=== PATIENT | female | born 1960 | race Caucasian/White ===

== ENCOUNTER 2016-08-19 19:47 | Emergency (ER) | payer SELFPAY ==
[~2016-08-19] VITALS: Ht 160 cm; Wt 50.0 kg
[~2016-08-19 19:47] MED LIST: Z.0.NO CURRENT MEDS
[2016-08-19 19:59] VITALS: BP 204/128; PULSE 99; RESP 16; TEMP 98.2; O2SAT 97
--- NOTE | 2016-08-19 20:22 | PD ---
HPI Chief Complaint: Injury Time Seen by Provider: 20:06 Travel History International Travel<30 days: No Contact w/Intl Traveler<30days: No Traveled to known affect area: No History of Present Illness HPI 55-year-old female here for evaluation of left hand pain after an injury that occurred at around 3:30 this morning. The patient reports that she tripped over her dog, landing onto an outstretched hand, hyperextending her left third and fourth fingers. She denies any other injuries. She has been applying ice and keeping the hand elevated. Pain is moderate, constant, worse with palpation and movement. She denies left wrist, left elbow, left shoulder pain. No other injuries. She is right-handed. [facility] Past Medical History Hypertension: Yes (UNTREATED AT THIS TIME) ?: Not Menopausal: Yes Past Surgical History Section: Yes (THREE) Eye Surgery: Yes (FOR LAZY EYE) Joint Replacement: Yes (PARTIAL RIGHT KNEE REPLACEMENT) Tonsillectomy: Yes Social History Alcohol Use: Yes (OCCASSIONALLY) Tobacco Use: Yes (1 PPD X 20 YEARS) Substance Use: No Allergies-Medications (Allergen,Severity, Reaction): Coded Allergies: Demerol (Verified Allergy, Severe, Seizures, 08/19/16) Penicillin (Verified Allergy, Severe, Hives, 08/19/16) Phenergan (Verified Allergy, Severe, Seizures, 08/19/16) Reported Meds & Prescriptions Reported Meds & Active Scripts Active Reported No Current Meds (Miscellaneous Medication) Misc Review of Systems Except as stated in HPI: all other systems reviewed are Neg Physical Exam Narrative GENERAL: Well-developed, well-nourished, comfortable, no acute distress. SKIN: Focused skin assessment warm/dry. Ecchymosis to left medial/dorsal/ palmar hand. No skin breaks. HEAD: Atraumatic. Normocephalic. CARDIOVASCULAR: Bilateral distal radial pulses are brisk and equal. Normal capillary refill in entire left hand. MUSCULOSKELETAL: Moderate edema to left medial hand over the dorsal and palmar aspect, particularly over the left fourth and fifth metacarpals. There is also edema to the proximal left third fourth and fifth fingers with mild overlying ecchymosis. No skin breaks. Compartments in left hand are supple. Limited range of motion in left third fourth and fifth fingers secondary to edema and pain. Respiratory joints and extremities are without deformity, without tenderness, with normal range of motion. NEUROLOGICAL: Awake and alert. No obvious cranial nerve deficits. Motor grossly within normal limits. Normal speech. Normal sensation in entire left hand. PSYCHIATRIC: Appropriate mood and affect; insight and judgment normal. Data Data Last Documented VS Vital Signs Date Time Temp Pulse Resp B/P Pulse Ox O2 Delivery O2 Flow Rate FiO2 08/19/16 20:27 16 96 Room Air 08/19/16 20:27 72 228/117 08/19/16 19:59 98.2 Orders Hand, Complete ([id number]) (08/19/16 ) Support Splint (08/19/16 20:52) MDM Medical Decision Making Medical Screen Exam Complete: Yes Emergency Medical Condition: Yes Differential Diagnosis Left hand fracture versus dislocation versus contusion Narrative Course Left hand x-ray shows nondisplaced proximal fourth and fifth phalanx fractures. Case discussed with on-call hand surgeon Dr. Cota who like the patient to be placed in an ulnar gutter splint and follow-up in her office this week. Patient has no insurance, so mandatory outpatient referral will be ordered. Patient is currently under pain management and has plenty of pain medication at home. Blood pressure is elevated here in the emergency Department, however the patient reports history of high blood pressure, no longer on antihypertensives. She is not displaying any signs or symptoms of hypertensive crisis. This can be followed up as an outpatient with a primary care physician. Diagnosis Primary Impression: Nondisplaced fracture of proximal phalanx of finger of left hand Referrals: Adri Cota MD 3 days Additional Instructions: Follow-up with hand surgeon Dr. Cota this week. Return to the emergency department for worsening symptoms or any other concerns. Disposition: 01 DISCHARGE HOME Condition: Stable Don Ayon MD Aug 19, 2016 20:22
[2016-08-19 20:27] VITALS: BP 228/117; PULSE 72; RESP 16; O2SAT 96
--- NOTE | 2016-08-19 20:27 | RADHPO ---
EXAM DATE/TIME: 08/19/2016 20:13 [facility] COMPARISON: No previous studies available for comparison. INDICATIONS : Left hand pain and swelling. MEDICAL HISTORY : None. SURGICAL HISTORY : None. ENCOUNTER: Initial ACUITY: 1 day PAIN SCORE: 5/10 LOCATION: Left hand. FINDINGS: Three view examination of the left hand demonstrates soft tissue swelling without dislocation, or fra cture. There is minimal lucency involving the proximal phalanges of the fourth and fifth digits. Th e carpal bones appear intact. The interphalangeal and metacarpophalangeal joints are intact. Bony m ineralization is normal. CONCLUSION: Soft tissue swelling without definite fracture. Minimal lucencies involving the proximal phalanges of the fourth and fifth digits could be nondisplaced fractures likely artifact. Viet Osborne MD on August 19, 2016 at 20:24 Board Certified Radiologist. This report was verified electronically.
== END 2016-08-19 21:28 | disposition home or self-care (01) ==
LOC: PHED 19:47
DX: S62.645A Nondisplaced fracture of proximal phalanx of left ring finger, initial encounter for closed fracture (principal); S62.647A Nondisplaced fracture of proximal phalanx of left little finger, initial encounter for closed fracture; I10 Essential (primary) hypertension; F17.200 Nicotine dependence, unspecified, uncomplicated; W01.0XXA Fall on same level from slipping, tripping and stumbling without subsequent striking against object, initial encounter
CPT/HCPCS: 29105; 73130